=== PATIENT | female | born 1970 | race Caucasian/White ===

== ENCOUNTER 2019-03-24 23:58 | Emergency (ER) | payer OTHER ==
[~2019-03-24] VITALS: Ht 157.5 cm; Wt 76.2 kg
[2019-03-24 23:59] VITALS: BP 132/75
--- NOTE | 2019-03-25 00:01 | NUR ---
TO LOBBY A/W BED AMBULATORY
--- NOTE | 2019-03-25 01:06 | NUR ---
PT AMBULATORY TO BED 12 AT THIS TIME.
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
[2019-03-25 01:45] VITALS: BP 132/75
--- NOTE | 2019-03-25 01:45 | NUR ---
DISCHARGE PAPERS GIVEN TO PT. WOUNDS INTACT. NO DRAINAGE. NO EDEMA. 4/10 PAIN BUT TOLLERABLE. DRESSED WITH CLEAN GAUZE BANDAGE. PT HAS APPOINTMENT WITH WOUND NURSE IN AM FOR PACKING CHANGE. INSTRUCTED TO F/U WITH PCP AND WHEN TO RETURN TO ER. PT VERBALLIZED UNDERSTANDING OF DC INSTRUCTIONS. ALL QUESTIONS ANSWERED.
== END 2019-03-25 01:45 | disposition home or self-care (01) ==
LOC: MED 23:58
DX: L72.9 Follicular cyst of the skin and subcutaneous tissue, unspecified (principal); Z48.01 Encounter for change or removal of surgical wound dressing; Z90.49 Acquired absence of other specified parts of digestive tract
CPT/HCPCS: 99283

== ENCOUNTER 2019-07-02 03:13 | Emergency (ER) | payer OTHER ==
[~2019-07-02] VITALS: Ht 157.5 cm; Wt 75.3 kg
[2019-07-02 03:13] VITALS: BP 123/72
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
--- NOTE | 2019-07-02 03:13 | NUR ---
PT AMBULATED SELF TO BED #11
[2019-07-02] MEDS ORDERED: KETOROLAC 30 MG/ML VIAL IM ONE (04:40)
[2019-07-02] MEDS ORDERED: CLINDAMYCIN 600 MG/4 ML VIAL IM ONE (04:40)
--- NOTE | 2019-07-02 04:48 | NUR ---
SLING PLACED ON PT R ARM SIZE SMALL.
[2019-07-02 04:52] VITALS: BP 123/72
--- NOTE | 2019-07-02 04:52 | NUR ---
PT DISCHARGED WITH PAPER. RX NAPROSYN, CLINDAMYCIN. EDUCATED PT REGARDING MEDICATIONS AND S/E. EDUCATED PT REGARDING D/C DIAGNOSIS AND INSTRUCTIONS. PT VERBALIZED UNDERSTANDING OF TEACHING. TOLD PT TO FOLLOW UP WITH PCP AND WHEN TO RETURN TO ED. PT VSS. ALL QUESTIONS ANSWERED.
== END 2019-07-02 04:52 | disposition home or self-care (01) ==
LOC: MED 03:13
DX: L03.113 Cellulitis of right upper limb (principal); Z90.710 Acquired absence of both cervix and uterus
CPT/HCPCS: 96372; 99283; J1885; J3490

== ENCOUNTER 2021-08-17 07:18 | Emergency (ER) | payer OTHER ==
[~2021-08-17] VITALS: Ht 160 cm; Wt 73.9 kg
[2021-08-17 07:28] VITALS: BP 114/58
--- NOTE | 2021-08-17 07:36 | NUR ---
PATIENT AMBULATED TO THE BATHROOM FOR URINE COLLECTION AND WILL GO TO LOBBY
--- NOTE | 2021-08-17 08:07 | NUR ---
PT TAKEN TO A FOR BLOOD DRAW.
--- NOTE | 2021-08-17 08:10 | NUR ---
PT TAKEN TO LOBBY TO WAIT.
--- NOTE | 2021-08-17 08:10 | NUR ---
PATIENT C/O N/V/D STARTED LAST NIGHT AFTER TAKING NEW MEDICATIONS OF METFORMIN AND CITALOPRAM. 05/22 PAIN THAT FEELS HOT. PATIENT DENIES TAKING ANY MEDICATION FOR PAIN OR FOR DIARRHEA. PMH: DM, HLD, ANXIETY, HYTERECTOMY NKA
--- NOTE | 2021-08-17 08:21 | NUR ---
DR. IBANEZ WITH PT IN TRIAGE FOR FURTHER EVALUATION.
[2021-08-17 08:37] LABS: BASOPHILS % (AUTO) 0.3 % (0.0-2.0); EOSINOPHILS # (AUTO) 0.1 K/uL (0-0.4); EOSINOPHILS % (AUTO) 0.8 % (0.0-4.0); HEMATOCRIT 40.3 % (36-48); HEMOGLOBIN 13.8 g/dL (12.0-16.0); LYMPHOCYTES # (AUTO) 2.3 K/uL (2.5-16.5); LYMPHOCYTES % (AUTO) 38.8 % (20.5-51.1); MEAN CORPUSCULAR HEMOGLOBIN 30 pg (27-31); MEAN CORPUSCULAR HGB CONC 34 g/dL (33-37); MEAN CORPUSCULAR VOLUME 86.4 fL (80-94); MONOCYTES # (AUTO) 0.3 K/uL (0.8-1.0); MONOCYTES % (AUTO) 5.4 % (1.7-9.3); NEUTROPHILS # (AUTO) 3.3 K/uL (1.8-7.7); NEUTROPHILS % (AUTO) 54.7 % (42.2-75.2); PLATELET COUNT (AUTO) 264 K/uL (140-450); RED BLOOD CELL COUNT(AUTO) 4.66 MIL/uL (4.20-5.40); RED CELL DISTRIBUTION WIDTH 12.5 % (11.6-13.7)
[2021-08-17 08:50] LABS: ALBUMIN 4.2 g/dL (3.4-5.0); ANION GAP 15.2 (8-16); CREATININE 0.8 mg/dL (0.6-1.3); POTASSIUM 4.2 mmol/L (3.5-5.1); TOTAL BILIRUBIN 0.8 mg/dL (0.0-1.0)
--- NOTE | 2021-08-17 09:38 | NUR ---
PER ERMD 12 LEAD WAS DONE ON PT AND CAME BACK NSR AT 72 HR.
[2021-08-17] MEDS ORDERED: FAMO-90 PO (09:41)
[2021-08-17] MEDS ORDERED: DICYCLOMINE HCL LIQUID 20 MG, ALUMINUM HYD/MAG/SIMETHICONE 30 ML, LIDOCAINE VISCOUS 2% ... PO ONE ×3 (09:55)
[2021-08-17] MEDS ORDERED: ALUMINUM HYD/MAG/SIMETHICONE 30 ML UDC ONE (10:01)
[2021-08-17] MEDS ORDERED: DICYCLOMINE HCL LIQUID 10 MG/5 ML UDC ONE (10:01)
[2021-08-17 10:19] VITALS: BP 129/92
== END 2021-08-17 10:20 | disposition home or self-care (01) ==
LOC: MED 07:18
DX: R10.10 Upper abdominal pain, unspecified (principal); R19.7 Diarrhea, unspecified; R11.2 Nausea with vomiting, unspecified; Z79.899 Other long term (current) drug therapy
CPT/HCPCS: 36415; 80053; 81002; 81025; 83690; 85025; 93005; 99284

== ENCOUNTER 2022-01-03 21:31 | Emergency (ER) | payer OTHER ==
[~2022-01-03] VITALS: Ht 160 cm; Wt 70.8 kg
[~2022-01-03 21:31] MED LIST: FAMO-90 PO
[2022-01-03 21:57] VITALS: BP 114/66
--- NOTE | 2022-01-03 22:55 | NUR ---
PT W/C ASSISTED TO BED #2
--- NOTE | 2022-01-03 23:00 | NUR ---
RCEIVED IN BED 3 WITH C/O 9/10 LOWER BACK PAIN X2PM. PT STATES PAIN RADIATES FROM LEFT LOWER BACK TO RIBS AND DOWN LEFT LEG. PT IS UNABLE TO AMBULATED WITHOUT HELP. PT THOUGHT IT WAS FLANK PAIN BUT WHEN SHE LAID DOWN AND GOT BACK UP PAIN BECAME WORSE AND WAS NOT ABLE TO WALK. DENIES URINARY CHANGES. HX:DM RX:METFORMIN NKA
[2022-01-04] MEDS ORDERED: KETOROLAC 30 MG/ML VIAL IVP ONE
[2022-01-04] MEDS ORDERED: MORPHINE SULFATE 4 MG/ML SYR IVP ONE
[2022-01-04] MEDS ORDERED: NACL 0.9% 1,000 ML IV ONE
[2022-01-04 00:09] LABS: BASOPHILS % (AUTO) 0.5 % (0.0-2.0); EOSINOPHILS # (AUTO) 0.2 K/uL (0-0.4); EOSINOPHILS % (AUTO) 2.8 % (0.0-4.0); HEMATOCRIT 38.1 % (36-48); HEMOGLOBIN 12.9 g/dL (12.0-16.0); LYMPHOCYTES # (AUTO) 3.2 K/uL (2.5-16.5); LYMPHOCYTES % (AUTO) 36.5 % (20.5-51.1); MEAN CORPUSCULAR HEMOGLOBIN 30 pg (27-31); MEAN CORPUSCULAR HGB CONC 34 g/dL (33-37); MEAN CORPUSCULAR VOLUME 87.8 fL (80-94); MONOCYTES # (AUTO) 0.5 K/uL (0.8-1.0); MONOCYTES % (AUTO) 6.2 % (1.7-9.3); NEUTROPHILS # (AUTO) 4.7 K/uL (1.8-7.7); PLATELET COUNT (AUTO) 243 K/uL (140-450); RED BLOOD CELL COUNT(AUTO) 4.34 MIL/uL (4.20-5.40); WHITE BLOOD COUNT (AUTO) 8.7 K/uL (4.8-10.8)
--- NOTE | 2022-01-04 00:20 | NUR ---
TO CT VIA W/C
[2022-01-04 00:22] LABS: APPEARANCE,URINE CLEAR (CLEAR); BILIRUBIN,URINE NEGATIVE (NEGATIVE); BLOOD, URINE NEGATIVE (NEGATIVE); COLOR,URINE YELLOW (YELLOW); LEUKOCYTE ESTERASE ,URINE TRACE (NEGATIVE); NITRITE, URINE NEGATIVE (NEGATIVE); UGLUCOSE NEGATIVE (NEGATIVE)
[2022-01-04 00:30] LABS: ALBUMIN 3.6 g/dL (3.4-5.0); ANION GAP 13.2 (8-16); CARBON DIOXIDE 27.8 mmol/L (21-32); CREATININE 0.7 mg/dL (0.6-1.3); TOTAL BILIRUBIN 0.3 mg/dL (0.0-1.0)
--- NOTE | 2022-01-04 00:30 | NUR ---
RETURNED FROM CT
[2022-01-04 00:34] LABS: RBC,URINE 0-5 /HPF (0-5); WBC,URINE 0-5 /HPF (0-5)
--- NOTE | 2022-01-04 02:00 | NUR ---
RESTING COMFORTABLY AT PRESENT
--- NOTE | 2022-01-04 04:00 | NUR ---
AWAKAE. DENIES PAIN AT THIS TIME. WARM BLANKETS GIVEN.
[2022-01-04] MEDS ORDERED: IBUP-2213 PO (04:53)
[2022-01-04] MEDS ORDERED: ACET-10509 PO (04:53)
[2022-01-04 05:35] VITALS: BP 114/66
--- NOTE | 2022-01-04 05:35 | NUR ---
Patient discharged with v/s stable. Written and verbal after care instructions given and explained. Patient alert, oriented and verbalized understanding of instructions. Ambulatory with steady gait. All questions addressed prior to discharge. ID band removed. Patient advised to follow up with PMD. Rx of TYLENOL AND MOTRIN given. Patient educated on indication of medication including possible reaction and side effects. Opportunity to ask questions provided and answered.
== END 2022-01-04 05:35 | disposition home or self-care (01) ==
LOC: MED 21:31
DX: R10.9 Unspecified abdominal pain (principal); Z20.822 Contact with and (suspected) exposure to COVID-19; E11.9 Type 2 diabetes mellitus without complications; Z79.899 Other long term (current) drug therapy
CPT/HCPCS: 36415; 74176; 80053; 81001; 81025; 85025; 87086; 87426; 96361; 96374; 96375; 99284; J1885; J2270

== ENCOUNTER 2023-08-05 09:29 | Emergency (ER) | payer OTHER ==
[~2023-08-05] VITALS: Ht 154.9 cm; Wt 74.4 kg
[~2023-08-05 09:29] MED LIST changes: +ACET-10509 PO; +IBUP-2213 PO
[2023-08-05 09:53] VITALS: BP 128/63; PULSE 79; RESP 17; TEMP 97.4; O2SAT 98
[2023-08-05] MEDS ORDERED: methocarbamoL 500 MG TAB PO STA (10:07)
[2023-08-05] MEDS ORDERED: KETOROLAC 30 MG/ML VIAL IM ONE (10:10)
[2023-08-05] MEDS ORDERED: ACETAMINOPHEN 325 MG TAB PO ONE (10:10)
[2023-08-05 10:39] LABS: BASOPHILS % (AUTO) 0.5 % (0.0-2.0); EOSINOPHILS # (AUTO) 0.2 K/uL (0-0.4); EOSINOPHILS % (AUTO) 2.3 % (0.0-4.0); HEMATOCRIT 41.8 % (36-48); HEMOGLOBIN 14.2 g/dL (12.0-16.0); LYMPHOCYTES # (AUTO) 2.7 K/uL (2.5-16.5); LYMPHOCYTES % (AUTO) 35.4 % (20.5-51.1); MEAN CORPUSCULAR HEMOGLOBIN 29 pg (27-31); MEAN CORPUSCULAR HGB CONC 34 g/dL (33-37); MEAN CORPUSCULAR VOLUME 86.4 fL (80-94); MONOCYTES # (AUTO) 0.4 K/uL (0.8-1.0); MONOCYTES % (AUTO) 4.9 % (1.7-9.3); NEUTROPHILS # (AUTO) 4.3 K/uL (1.8-7.7); NEUTROPHILS % (AUTO) 56.9 % (42.2-75.2); PLATELET COUNT (AUTO) 241 K/uL (140-450); RED BLOOD CELL COUNT(AUTO) 4.83 MIL/uL (4.20-5.40); RED CELL DISTRIBUTION WIDTH 12.9 % (11.6-13.7); WHITE BLOOD COUNT (AUTO) 7.5 K/uL (4.8-10.8)
[2023-08-05 10:40] LABS: BILIRUBIN,URINE NEGATIVE (NEGATIVE); BLOOD, URINE TRACE-I (NEGATIVE); COLOR,URINE YELLOW (YELLOW); LEUKOCYTE ESTERASE ,URINE TRACE (NEGATIVE); NITRITE, URINE NEGATIVE (NEGATIVE); PH,URINE 6.5 (5.0-9.0); PROTEIN,URINE NEGATIVE (NEGATIVE); UGLUCOSE NEGATIVE (NEGATIVE); UROBILINOGEN,URINE 0.2 EU/dL (0.2 - 1)
[2023-08-05 10:48] LABS: APPEARANCE,URINE CLEAR (CLEAR); BACTERIA,URINE OCCASSIONAL /HPF (None Seen); RBC,URINE 0-5 /HPF (0-5); SQUAMOUS EPITHELIAL CELL,UR 0-3 (FEW) /LPF (0-3 (FEW)); WBC,URINE 0-5 /HPF (0-5)
[2023-08-05 10:59] LABS: ALBUMIN 3.8 g/dL (3.4-5.0); ANION GAP 11.9 (8-16); CALCIUM 8.7 mg/dL (8.5-10.1); CARBON DIOXIDE 30.1 mmol/L (21-32); CREATININE 0.8 mg/dL (0.6-1.3); TOTAL BILIRUBIN 0.6 mg/dL (0.0-1.0); TOTAL PROTEIN, SERUM 7.7 g/dL (6.4-8.2)
[2023-08-05] MEDS ORDERED: IBUP-2213 PO (11:39)
[2023-08-05] MEDS ORDERED: CEPH-588 PO (11:39)
[2023-08-05] MEDS ORDERED: METH-1681 PO (11:39)
[2023-08-05 11:46] VITALS: BP 121/70; PULSE 79; RESP 17; TEMP 97.4; O2SAT 98
== END 2023-08-05 11:47 | disposition home or self-care (01) ==
LOC: MED 09:29
DX: N39.0 Urinary tract infection, site not specified (principal); E11.9 Type 2 diabetes mellitus without complications; Z79.899 Other long term (current) drug therapy; Z79.4 Long term (current) use of insulin
CPT/HCPCS: 36415; 80053; 81001; 81025; 85025; 96372; 99283; J1885

== ENCOUNTER 2024-02-16 13:53 | Emergency (ER) | payer OTHER ==
[~2024-02-16] VITALS: Ht 157.5 cm; Wt 70.9 kg
[~2024-02-16 13:53] MED LIST changes: +CEPH-588 PO; +METH-1681 PO
[2024-02-16 14:00] VITALS: BP 138/69; PULSE 69; RESP 15; TEMP 98.3
[2024-02-16] MEDS: MAG SULF 2000 MG/WATER PREMIX 50 ML IV ONE (15:35)
[2024-02-16 16:08] LABS: APPEARANCE,URINE CLEAR (CLEAR); BILIRUBIN,URINE NEGATIVE (NEGATIVE); BLOOD, URINE NEGATIVE (NEGATIVE); COLOR,URINE YELLOW (YELLOW); LEUKOCYTE ESTERASE ,URINE TRACE (NEGATIVE); NITRITE, URINE NEGATIVE (NEGATIVE); PROTEIN,URINE NEGATIVE (NEGATIVE); UGLUCOSE NEGATIVE (NEGATIVE); UROBILINOGEN,URINE 0.2 EU/dL (0.2 - 1)
[2024-02-16] MEDS: NACL 0.9% 1,000 ML IV ONE (16:09)
[2024-02-16] MEDS: ACETAMINOPHEN EXTRA STRENGTH 500 MG TAB PO ONE (16:10)
[2024-02-16 16:23] LABS: BACTERIA,URINE FEW /HPF (None Seen); RBC,URINE 0-5 /HPF (0-5); SQUAMOUS EPITHELIAL CELL,UR 0-3 (FEW) /LPF (0-3 (FEW)); WBC,URINE 0-5 /HPF (0-5)
[2024-02-16] MEDS: METOCLOPRAMIDE 10 MG/2 ML INJ VIAL IVP ONE (16:27)
[2024-02-16 16:45] LABS: BASOPHILS % (AUTO) 0.4 % (0.0-2.0); EOSINOPHILS # (AUTO) 0.2 K/uL (0-0.4); HEMATOCRIT 41.3 % (36-48); LYMPHOCYTES # (AUTO) 3.7 K/uL (2.5-16.5); LYMPHOCYTES % (AUTO) 42.6 % (20.5-51.1); MEAN CORPUSCULAR HEMOGLOBIN 29 pg (27-31); MEAN CORPUSCULAR HGB CONC 34 g/dL (33-37); MEAN CORPUSCULAR VOLUME 86.8 fL (80-94); MONOCYTES # (AUTO) 0.4 K/uL (0.8-1.0); MONOCYTES % (AUTO) 4.6 % (1.7-9.3); NEUTROPHILS # (AUTO) 4.4 K/uL (1.8-7.7); NEUTROPHILS % (AUTO) 50.4 % (42.2-75.2); PLATELET COUNT (AUTO) 264 K/uL (140-450); RED BLOOD CELL COUNT(AUTO) 4.76 MIL/uL (4.20-5.40); RED CELL DISTRIBUTION WIDTH 13.3 % (11.6-13.7); WHITE BLOOD COUNT (AUTO) 8.7 K/uL (4.8-10.8)
[2024-02-16 17:04] LABS: ALBUMIN 4.1 g/dL (3.4-5.0); ANION GAP 10.6 (8-16); CALCIUM 9.3 mg/dL (8.5-10.1); CARBON DIOXIDE 31.2 mmol/L (21-32); CREATININE 0.7 mg/dL (0.6-1.3); POTASSIUM 3.8 mmol/L (3.5-5.1); TOTAL BILIRUBIN 0.5 mg/dL (0.0-1.0); TOTAL PROTEIN, SERUM 7.9 g/dL (6.4-8.2)
[2024-02-16] MEDS: KETOROLAC 30 MG/ML VIAL IVP ONE (18:14)
[2024-02-16 18:42] VITALS: BP 110/58; PULSE 69; RESP 15; TEMP 98; O2SAT 98
== END 2024-02-16 18:21 | disposition home or self-care (01) ==
LOC: MED 13:53
DX: R51.9 Headache, unspecified (principal); H93.13 Tinnitus, bilateral; I10 Essential (primary) hypertension; E11.9 Type 2 diabetes mellitus without complications; Z79.1 Long term (current) use of non-steroidal anti-inflammatories (NSAID); Z79.899 Other long term (current) drug therapy
CPT/HCPCS: 36415; 70450; 80053; 81001; 81025; 82948; 85025; 96361; 96365; 96375; 99285; J2765; J3475; J7030; J1885

== ENCOUNTER 2024-03-18 13:43 | Emergency (ER) | payer OTHER ==
[~2024-03-18] VITALS: Ht 160 cm; Wt 68.0 kg
[2024-03-18 13:56] VITALS: BP 130/64; PULSE 68; RESP 18; TEMP 97.3; O2SAT 98
[2024-03-18] MEDS: LIDOCAINE 5% 1 EA PATCH TP ONE (14:17)
[2024-03-18] MEDS: KETOROLAC 30 MG/ML VIAL IM ONE (14:17)
[2024-03-18] MEDS ORDERED: LID5T TP (14:48)
[2024-03-18] MEDS ORDERED: NAPR-337 PO (14:48)
[2024-03-18 15:03] VITALS: BP 128/64; PULSE 78; RESP 16; TEMP 98.3; O2SAT 99
== END 2024-03-18 15:03 | disposition home or self-care (01) ==
LOC: MED 13:43
DX: S16.1XXA Strain of muscle, fascia and tendon at neck level, initial encounter (principal); I10 Essential (primary) hypertension; E11.9 Type 2 diabetes mellitus without complications; Z79.4 Long term (current) use of insulin; Z79.899 Other long term (current) drug therapy; V49.88XA Car occupant (driver) (passenger) injured in other specified transport accidents, initial encounter; Y93.89 Activity, other specified; Y92.89 Other specified places as the place of occurrence of the external cause; Y99.8 Other external cause status
CPT/HCPCS: 96372; 99283; J1885

== ENCOUNTER 2024-04-07 14:53 | Emergency (ER) | payer OTHER ==
[~2024-04-07] VITALS: Ht 160 cm; Wt 72.7 kg
[~2024-04-07 14:53] MED LIST changes: +LID5T TP; +NAPR-337 PO
[2024-04-07 15:35] VITALS: BP 114/57; PULSE 67; RESP 16; TEMP 97.7; O2SAT 98
[2024-04-07 17:42] VITALS: BP 112/62; PULSE 66; RESP 16; TEMP 98.6; O2SAT 98
== END 2024-04-07 17:42 | disposition home or self-care (01) ==
LOC: MED 14:53
DX: S05.12XA Contusion of eyeball and orbital tissues, left eye, initial encounter (principal); E11.9 Type 2 diabetes mellitus without complications; I10 Essential (primary) hypertension; Z79.1 Long term (current) use of non-steroidal anti-inflammatories (NSAID); Z79.2 Long term (current) use of antibiotics; Z79.899 Other long term (current) drug therapy; X50.9XXA Other and unspecified overexertion or strenuous movements or postures, initial encounter; Y93.89 Activity, other specified; Y92.89 Other specified places as the place of occurrence of the external cause; Y99.0 Civilian activity done for income or pay
CPT/HCPCS: 70480; 99284